=== PATIENT | female | born 1970 | race Caucasian/White ===

== ENCOUNTER 2017-01-22 07:30 | Outpatient (CLI) | payer OTHER ==
[~2017-01-22] VITALS: Ht 170.2 cm; Wt 108.0 kg
[2017-01-22 11:56] LABS: BASOPHILS # (AUTO) 0.1 K/uL (0.0-0.2); BASOPHILS % (AUTO) 0.5 % (0.0-2.0); EOSINOPHILS # (AUTO) 0.2 K/uL (0.0-0.4); EOSINOPHILS % (AUTO) 1.4 % (0.0-4.0); HEMATOCRIT 36.2 % (36-48); LYMPHOCYTES # (AUTO) 2.1 K/uL (1.0-5.5); LYMPHOCYTES % (AUTO) 17.3 % (20.5-51.5); MEAN CORPUSCULAR HEMOGLOBIN 26 pg (27-31); MEAN CORPUSCULAR HGB CONC 33 % (32-36); MEAN CORPUSCULAR VOLUME 79 fL (79.0-98.0); MONOCYTES # (AUTO) 0.5 K/uL (0.0-1.0); MONOCYTES % (AUTO) 4.1 % (1.7-9.3); NEUTROPHILS # (AUTO) 9.1 K/uL (1.8-7.7); NEUTROPHILS % (AUTO) 76.7 % (40.0-70.0); PLATELET COUNT (AUTO) 265 K/uL (130-430); RED BLOOD CELL COUNT(AUTO) 4.61 MIL/uL (4.2-6.2); RED CELL DISTRIBUTION WIDTH 14.1 % (9.0-15.0)
[2017-01-22 12:11] LABS: CREATININE 0.68 mg/dL (0.55-1.30); POTASSIUM 3.9 mmol/L (3.5-5.1)
[2017-01-22 12:20] LABS: BILIRUBIN,URINE NEGATIVE (NEGATIVE); BLOOD, URINE 3+ (NEGATIVE); CLARITY/URINE CLOUDY (CLEAR); COLOR,URINE YELLOW (YELLOW); GLUCOSE,URINE NEGATIVE (NEGATIVE); KETONES,URINE NEGATIVE (NEGATIVE); LEUKOCYTE ESTERASE ,URINE NEGATIVE (NEGATIVE); NITRITE, URINE NEGATIVE (NEGATIVE); PH,URINE 5.5 (5.0-8.0); PROTEIN URINE TRACE (NEGATIVE); UROBILINOGEN,URINE 0.2 (0.2-1.0)
[2017-01-22 12:24] LABS: BACTERIA,URINE RARE /HPF (None Seen); RBC,URINE 50-80 /HPF (0-3); WBC,URINE 0-3 /HPF (0-3)
[2017-01-22 12:25] LABS: HCG,QUAL RESULT NEGATIVE (NEGATIVE)
[2017-01-22] MEDS ORDERED: IBUP-1479 PO (15:56)
[2017-01-22] MEDS ORDERED: LISI-600 PO (15:56)
[2017-01-25] MEDS ORDERED: CLINDAMYCIN 600 MG in D5W 50 ML IV ONE (06:30)
== END 2017-01-22 17:00 | disposition home or self-care (01) ==
LOC: SLB 07:30 → SMU 01-25 05:51 → UNDOADMIN 01-25 05:51 → EDSTATUS 01-25 07:30
PROVIDERS: ATTEND Obstetrics & Gynecology
DX: Z01.818 Encounter for other preprocedural examination (principal); Z90.710 Acquired absence of both cervix and uterus
CPT/HCPCS: 36415; 80048; 81000-TC; 84703; 85025; 86886; 86900; 86901; 87081

== ENCOUNTER 2017-02-15 05:52 | Inpatient (IN) | payer OTHER, MEDICARE ==
[2017-02-12 16:22] LABS: BILIRUBIN,URINE NEGATIVE (NEGATIVE); BLOOD, URINE 3+ (NEGATIVE); COLOR,URINE YELLOW (YELLOW); GLUCOSE,URINE NEGATIVE (NEGATIVE); KETONES,URINE NEGATIVE (NEGATIVE); LEUKOCYTE ESTERASE ,URINE NEGATIVE (NEGATIVE); NITRITE, URINE NEGATIVE (NEGATIVE); PH,URINE 5.5 (5.0-8.0); PROTEIN URINE NEGATIVE (NEGATIVE); UROBILINOGEN,URINE 0.2 (0.2-1.0)
[2017-02-12 16:28] LABS: BASOPHILS # (AUTO) 0.1 K/uL (0.0-0.2); BASOPHILS % (AUTO) 0.6 % (0.0-2.0); EOSINOPHILS # (AUTO) 0.1 K/uL (0.0-0.4); EOSINOPHILS % (AUTO) 1.2 % (0.0-4.0); HEMOGLOBIN 11.9 g/dL (12.0-16.0); LYMPHOCYTES # (AUTO) 2.1 K/uL (1.0-5.5); LYMPHOCYTES % (AUTO) 21.2 % (20.5-51.5); MEAN CORPUSCULAR HEMOGLOBIN 26 pg (27-31); MEAN CORPUSCULAR HGB CONC 33 % (32-36); MEAN CORPUSCULAR VOLUME 79 fL (79.0-98.0); MONOCYTES # (AUTO) 0.7 K/uL (0.0-1.0); MONOCYTES % (AUTO) 6.9 % (1.7-9.3); NEUTROPHILS # (AUTO) 6.9 K/uL (1.8-7.7); NEUTROPHILS % (AUTO) 70.1 % (40.0-70.0); PLATELET COUNT (AUTO) 340 K/uL (130-430); RED BLOOD CELL COUNT(AUTO) 4.57 MIL/uL (4.2-6.2); RED CELL DISTRIBUTION WIDTH 13.8 % (9.0-15.0); WHITE BLOOD COUNT (AUTO) 9.9 K/uL (4.8-10.8)
[2017-02-12 16:37] LABS: CALCIUM 8.9 mg/dL (8.4-11.0); CLARITY/URINE HAZY (CLEAR); CREATININE 0.7 mg/dL (0.55-1.30); POTASSIUM 3.6 mmol/L (3.5-5.1)
[2017-02-12 16:39] LABS: BACTERIA,URINE FEW /HPF (None Seen); MUCUS,URINE None Seen /LPF (None Seen); WBC,URINE 0-3 /HPF (0-3)
[~2017-02-15] VITALS: Ht 170.2 cm; Wt 108.9 kg
[~2017-02-15 05:52] MED LIST: IBUP-1479 PO; LISI-600 PO
[2017-02-15] MEDS ORDERED: CLINDAMYCIN 600 mg/50mL D5W 50 ML IV ONE (06:48)
[2017-02-15] MEDS ORDERED: DEXAMETHASONE SOD PHOSPHATE 4 MG/ML VIAL IVP ONE (07:36)
[2017-02-15] MEDS ORDERED: METOCLOPRAMIDE HCL 10 MG/2 ML VIAL IVP ONE (07:36)
[2017-02-15] MEDS ORDERED: MORPHINE SULFATE 10 MG/ML VIAL IVP ONE (07:36)
[2017-02-15] MEDS ORDERED: PROPOFOL 200MG/ 20ML VIAL (DIPRIVAN) IV ONE (07:36)
[2017-02-15] MEDS ORDERED: fentaNYL CITRATE/PF 100 MCG/2 ML AMP IVP ONE (07:36)
[2017-02-15] MEDS ORDERED: KETOROLAC TROMETHAMINE 30 MG VIAL IVP ONE (07:36)
[2017-02-15] MEDS ORDERED: LR 1,000 ML IV.SOLN IV ONE (07:36)
[2017-02-15] MEDS ORDERED: NS IRRIG SOLN 1000 ML IR ONE (07:36)
[2017-02-15] MEDS ORDERED: ROCURONIUM BROMIDE 10 MG/ML (ZEMURON) IV ONE (07:36)
[2017-02-15] MEDS ORDERED: SEVOFLURANE 15 MIN GAS INH ONE (07:36)
[2017-02-15] MEDS ORDERED: MIDAZOLAM HCL 5 MG/5 ML VIAL IVP ONE (07:36)
[2017-02-15] MEDS ORDERED: ASPI-1063 PO (07:38)
[2017-02-15] MEDS ORDERED: LISI-600 PO (07:38)
[2017-02-15] MEDS ORDERED: TRAM50TA92 PO (07:38)
[2017-02-15] MEDS ORDERED: LR 1,000 ML IV ONE (08:21)
[2017-02-15] MEDS ORDERED: ONDANSETRON HCL 4 MG/2 ML VIAL IVP PRN ×3 (08:30→10:30)
[2017-02-15] MEDS ORDERED: NALBUPHINE HCL 10 MG/ML AMP IVP PRN (08:30)
[2017-02-15] MEDS ORDERED: DIPHENHYDRAMINE INJ 50 MG/ML VIAL IVP PRN (08:30)
[2017-02-15] MEDS ORDERED: ePHEDrine sulfate 50 MG/ML VIAL IVP PRN (08:30)
[2017-02-15] MEDS ORDERED: NALOXONE HCL 0.4 MG/ML AMP (NARCAN) IVP PRN (08:30)
[2017-02-15 10:19] VITALS: BP_SYST 128
[2017-02-15] MEDS ORDERED: LR 1,000 ML IV SCH (10:25)
[2017-02-15] MEDS ORDERED: fentaNYL CITRATE/PF 100 MCG/2 ML AMP ONE ×2 (10:27→11:02)
[2017-02-15] MEDS: fentaNYL CITRATE/PF 100 MCG/2 ML AMP IVP PRN ×2 (10:30→11:06)
[2017-02-15] MEDS ORDERED: SIMETHICONE 80 MG TAB.CHEW PO PRN (10:30)
[2017-02-15] MEDS ORDERED: OXYCODONE/ACETAMINOPHEN 5-325 TABLET PO PRN (10:30)
[2017-02-15] MEDS ORDERED: FLU VACC QS 2017-18(36MOS+)/PF 0.5 ML/SYR SYRINGE I.M. PRN (18:45)
[2017-02-15] MEDS ORDERED: SENNOSIDES/DOCUSATE SODIUM 1 TAB TABLET(SENOKOT-S) PO PRN ×2 (21:00)
[2017-02-15] MEDS ORDERED: TEMAZEPAM 15 MG CAPSULE PO PRN (21:00)
[2017-02-16] MEDS: IBUPROFEN 800 MG TABLET PO PRN ×2 (06:15→16:41)
[2017-02-16 08:51] LABS: HEMATOCRIT 32.7 % (36-48); HEMOGLOBIN 10.5 g/dL (12.0-16.0)
[2017-02-16] MEDS: LISINOPRIL 20 MG TABLET PO SCH (09:00)
[2017-02-16] MEDS: OXYCODONE/ACETAMINOPHEN 5-325 TABLET PO PRN ×2 (15:30→23:13)
[2017-02-17] MEDS: OXYCODONE/ACETAMINOPHEN 5-325 TABLET PO PRN ×6 (02:49→16:36)
[2017-02-17] MEDS: LISINOPRIL 20 MG TABLET PO SCH (10:00)
== END 2017-02-17 16:15 | disposition home or self-care (01) | DRG 743 ==
LOC: SMU 05:52 → SPU 11:48
PROVIDERS: ADMIT Obstetrics & Gynecology; ATTEND Obstetrics & Gynecology
PROC: 0UB70ZZ Excision of Bilateral Fallopian Tubes, Open Approach (ICD-10-PCS; 2017-02-15)
PROC: 0UT90ZZ Resection of Uterus, Open Approach (ICD-10-PCS; principal; 2017-02-15 07:30)
DX: D25.9 Leiomyoma of uterus, unspecified (principal); G60.3 Idiopathic progressive neuropathy; E66.01 Morbid (severe) obesity due to excess calories; M22.40 Chondromalacia patellae, unspecified knee; N83.202 Unspecified ovarian cyst, left side; N83.201 Unspecified ovarian cyst, right side; M79.7 Fibromyalgia; D64.9 Anemia, unspecified; I10 Essential (primary) hypertension; Z68.37 Body mass index [BMI] 37.0-37.9, adult; G43.909 Migraine, unspecified, not intractable, without status migrainosus; F41.9 Anxiety disorder, unspecified; G89.29 Other chronic pain; Z88.0 Allergy status to penicillin; Z88.8 Allergy status to other drugs, medicaments and biological substances; Z82.49 Family history of ischemic heart disease and other diseases of the circulatory system
CPT/HCPCS: 36415; 80048; 81000-TC; 84703; 85018-TC; 85025; 86886; 86900; 86901; 87081; 88307; J1100; J1200; J1885; J2250; J2270; J2704; J2765; J3010; J3490; J7120